=== PATIENT | female | born 1960 | race Caucasian/White ===

== ENCOUNTER 2017-02-14 13:08 | Emergency (ER) | payer OTHER ==
--- NOTE | ~2017-02-14 | CT71 ---
[facility] A Service of [facility] [place] RADIOLOGY TEXT RESULTS PATIENT: NANCY SANDY LOCATION: SED : 64 UNIT #: [id number] AGE: [address]: Patti Babin MD SEX: F ORDER DR: [id number] [address] [address] [id number] E MR#: [id number] Acc #: [id number] NAME: NANCY SANDY : 1960 SEX: F STUDY DATE/TIME: 02/14/2017 14:48 UNIT: SED ROOM: STUDY DESCRIPTION: CT Head Wo Contrast Attending Physician: Patti Babin M.D. Ordering Physician: Patti Babin M.D. Primary Care Physician: Primary Care Physician No MEDICAL IMAGING REPORT This report is preliminary unless electronic signature is present. EXAM CT brain without contrast HISTORY Dizzy and lightheaded for 2 weeks. Blurred vision for [address] exam was performed with one or more of the following radiation dose reduction techniques: Automatic exposure control, adjustment of mA and/or kV according to patient size, and iterative reconstruction. CT brain without contrast demonstrates no intracranial hemorrhage, mass or edema. No midline shift or ventricular dilatation or extraaxial fluid collection. Moderate mucosal thickening in the partly visualized maxillary sinuses and in the sphenoid sinuses bilaterally, and mild mucosal thickening in the frontal sinuses. IMPRESSION 1. Negative CT brain. 2. Lqfe-xn-vgeusyny paranasal sinusitis. Dictated by... Jeremy Small M.D. THIS IS AN ELECTRONICALLY VERIFIED REPORT Jeremy Small M.D. at 02/15/2017 3:26 PM DFL/psc TD: 02/15/2017 09:48 JOB #: [id number] [facility] A Service of [facility] [place] RADIOLOGY TEXT RESULTS PATIENT: NANCY SANDY LOCATION: SED : 64 UNIT #: [id number] AGE: [address]: Patti Babin MD SEX: F ORDER DR: MEDICAL IMAGING REPORT Page 1 of 1
--- NOTE | ~2017-02-14 | EKG ---
PATIENT: NANCY SANDY UNIT #: [id number] Ventricular Rate: 81 BPM Atrial Rate: 81 BPM P-R Interval: 238 ms QRS Duration: 76 ms Q-T Interval: 404 ms QTC Calculation(Bezet): 469 ms P [place]: 118 degrees Calculated R [place]: -172 degrees Calculated T [place]: 150 degrees Diagnosis Line: Suspect arm lead reversal, interpretation Diagnosis Line: assumes no reversal Diagnosis Line: Sinus rhythm with 1st degree A-V block Diagnosis Line: Right superior axis deviation Diagnosis Line: Nonspecific ST and T wave abnormality Diagnosis Line: Prolonged QT Diagnosis Line: Abnormal ECG Diagnosis Line: No previous ECGs available Diagnosis Line: Confirmed by KATHERINE WOODSON MD ([id number]) on Diagnosis Line: 02/17/2017 11:18:21 AM INTERPRETING MD: CHINTAN LAGUNA
--- NOTE | ~2017-02-14 | US85 ---
[facility]. [facility] A Service of [facility] RADIOLOGY TEXT RESULTS PATIENT: NANCY SANDY LOCATION: SED : 64 UNIT #: [id number] AGE: [address]: Patti Babin MD SEX: F ORDER DR: [id number] [address] [address] [id number] E MR#: [id number] Acc #: [id number] NAME: NANCY SANDY : 1960 SEX: F STUDY DATE/TIME: 02/14/2017 14:45 UNIT: SED ROOM: STUDY DESCRIPTION: [facility] [employer] [facility] Attending Physician: Patti Babin M.D. Ordering Physician: Patti Babin M.D. Primary Care Physician: No Primary Care Physician MEDICAL IMAGING REPORT This report is preliminary unless electronic signature is present. EXAM Left lower extremity venous ultrasound. HISTORY Left lower extremity pain for 2 weeks. TECHNIQUE Venous ultrasound examination of the lower extremity was performed using grayscale, spectral Doppler and color flow Doppler imaging. FINDINGS The examination is negative. There is no evidence of left lower extremity deep venous thrombus from the groin to the lower calf. Visualized greater saphenous vein is also patent. IMPRESSION Negative examination. No evidence of left lower extremity deep venous thrombosis. Dictated by... Jeremy Small M.D. THIS IS AN ELECTRONICALLY VERIFIED REPORT Jeremy Small M.D. at 02/15/2017 3:27 PM DFL/gz TD: 02/15/2017 09:33 JOB #: [id number] MEDICAL IMAGING REPORT Page 1 of 1
--- NOTE | ~2017-02-14 | CR72 ---
[facility]. [facility] A Service of [facility] & [facility] RADIOLOGY TEXT RESULTS PATIENT: NANCY SANDY LOCATION: SED : 64 UNIT #: [id number] AGE: [address]: Patti Babin MD SEX: F ORDER DR: [id number] [address] [address] [id number] E MR#: [id number] Acc #: [id number] NAME: NANCY SANDY : 1960 SEX: F STUDY DATE/TIME: 02/14/2017 14:47 UNIT: SED ROOM: STUDY DESCRIPTION: CR Chest Single View Portable Attending Physician: Patti Babin M.D. Ordering Physician: Patti Babin M.D. Primary Care Physician: Primary Care Physician No MEDICAL IMAGING REPORT This report is preliminary unless electronic signature is present. EXAM Portable chest HISTORY Dizziness, lightheadedness x2 weeks. Blurred vision. FINDINGS A single AP portable view of the chest shows both lungs to be clear. The heart is normal in size. The mediastinal contour is normal. No significant bone abnormalities are seen. IMPRESSION Normal portable chest. Dictated by... Dandy Amaya M.D. THIS IS AN ELECTRONICALLY VERIFIED REPORT Dandy Amaya M.D. at 02/15/2017 10:03 AM ULYSSES/arelis TD: 02/15/2017 09:25 JOB #: [id number] MEDICAL IMAGING REPORT Page 1 of 1
[2017-02-14] MEDS ORDERED: RAMIPRIL2.5 M1 PO (13:25)
[2017-02-14] MEDS ORDERED: LANTUS100 U/ML SUBQ (13:25)
[2017-02-14] MEDS ORDERED: VISTARIL50 MG PO (13:25)
[2017-02-14] MEDS ORDERED: LIPITOR40 MG PO (13:26)
[2017-02-14] MEDS ORDERED: INVOKANA300 MG PO (13:26)
[2017-02-14 14:00] LABS: BASOPHIL# 0.1 X10e3 (0-0.3); BASOPHIL% 0.7 % (0-2.5); EOSINOPHIL# 0.6 X10e3 (0-0.7); EOSINOPHIL% 6.2 % (0.0-7.0); HEMATOCRIT 48.1 % (35.0-45.0); HEMOGLOBIN 16.2 gm/dL (12.0-16.0); LYMPHOCYTE# 3.2 X10e3 (1.0-3.5); LYMPHOCYTE% 30.9 % (17.0-45.0); MEAN CELL VOLUME 91.9 FL (83-96); MEAN CORPUSCULAR HGB CONC 33.7 g/dL (30-36); MEAN PLATELET VOLUME 8.7 FL (6.5-11.5); MONOCYTE# 1.1 X10e3 (0-1.0); MONOCYTE% 11.2 % (3.0-12.0); NEUTROPHIL# 5.2 X10e3 (1.5-7.1); PLATELET COUNT 239 X10e3 (140-420); RED BLOOD COUNT 5.24 X10e (3.90-5.30); RED CELL DISTRIBUTION WIDTH 13.4 % (11.0-15.5); WHITE BLOOD COUNT 10.2 X10e3 (4.0-10.5)
[2017-02-14 14:01] LABS: DIFF IND NO
[2017-02-14 14:16] LABS: BILIRUBIN, DIRECT 0.2 mg/dL (0.0-0.2); BILIRUBIN,INDIRECT 0.8 mg/dL (0.0-0.9); CALCIUM SERUM 9.3 mg/dL (8.4-10.2); CREATININE SERUM 0.5 mg/dL (0.6-1.4); GLOM FILT RATE Estimated 109.7 mL/min (>60); POTASSIUM 3.9 mmol/L (3.5-5.1); PROTEIN TOTAL SERUM 7.1 g/dL (6.0-8.3)
[2017-02-14 14:43] LABS: URINE SOURCE CLEAN CATCH
[2017-02-14 14:47] LABS: URINE APPEARANCE CLEAR; URINE BILIRUBIN NEG (NEG); URINE BLOOD NEG (NEG); URINE COLOR YELLOW; URINE GLUCOSE 300 MG/DL (NORM); URINE KETONE NEG (NEG); URINE LEUKOCYTE ESTERASE TRACE (NEG); URINE NITRATE NEG (NEG); URINE PH 5.5 (5-8); URINE PROTEIN NEG (NEG)
[2017-02-14 14:50] LABS: MICRO INDICATED? YES
[2017-02-14 14:53] LABS: CULTURE INDICATED? YES; URINE BACTERIA NEG (NEG); URINE RBC 0-2 /[HPF] (0-2); URINE SQUAMOUS EPITHELIAL CELL FEW /[HPF]
[2017-02-14 14:57] LABS: AMPHETAMINE NEG (NEG); BARBITURATES NEG (NEG); BENZODIAZEPINES NEG (NEG); COCAINE NEG (NEG); MARIJUANA NEG (NEG); OPIATES NEG (NEG); TRICYCLIC ANTIDEPRESSANTS NEG (NEG); U METHADONE NEG (NEG)
[2017-02-15 17:00] LABS: POC - CKMB <1.0 ng/mL (0.0-7.9); POC - MYOGLOBIN 53.1 ng/mL (0.0-169.0); POC - TROPONIN <0.05 ng/mL (<=0.05)
[2017-02-15 17:05] LABS: POC - CKMB <1.0 ng/mL (0.0-7.9); POC - MYOGLOBIN 47.5 ng/mL (0.0-169.0); POC - TROPONIN <0.05 ng/mL (<=0.05)
== END 2017-02-14 15:58 | disposition home or self-care (01) ==
LOC: SED 13:08
PROVIDERS: Student in an Organized Health Care Education/Training Program
DX: R42 Dizziness and giddiness (principal); R51 Headache; M79.652 Pain in left thigh; M54.2 Cervicalgia; E11.40 Type 2 diabetes mellitus with diabetic neuropathy, unspecified; E78.5 Hyperlipidemia, unspecified; F17.200 Nicotine dependence, unspecified, uncomplicated; Z79.4 Long term (current) use of insulin; Z88.6 Allergy status to analgesic agent; Z88.1 Allergy status to other antibiotic agents; Z88.8 Allergy status to other drugs, medicaments and biological substances
CPT/HCPCS: 36415; 70450; 71010; 80048; 80076; 80307; 81003; 82553; 83874; 84484; 85025; 87086; 93005; 93971; 96361; 96374; 99285; J2405